=== PATIENT | male | born 1985 | race African-American/Black ===

== ENCOUNTER 2021-12-03 11:07 | Day surgery (SDC) | payer BC ==
[2021-11-25 16:59] VITALS: BMI 27.3
[2021-12-03] MEDS ORDERED: PROPOFOL 80 ML ONE (12:19)
[2021-12-03 13:06] VITALS: RESP 16; TEMP 98
[2021-12-03 13:37] VITALS: BP 110/58; PULSE 79
== END 2021-12-03 13:30 | disposition home or self-care (01) ==
LOC: FASU-ENDO 11:07
PROVIDERS: ATTEND Internal Medicine Gastroenterology
PROC: 0DB78ZX Excision of Stomach, Pylorus, Via Natural or Artificial Opening Endoscopic, Diagnostic (ICD-10-PCS; 2021-12-03)
PROC: 0DB48ZX Excision of Esophagogastric Junction, Via Natural or Artificial Opening Endoscopic, Diagnostic (ICD-10-PCS; 2021-12-03)
PROC: 0DB98ZX Excision of Duodenum, Via Natural or Artificial Opening Endoscopic, Diagnostic (ICD-10-PCS; principal; 2021-12-03 12:44)
DX: K29.70 Gastritis, unspecified, without bleeding (principal); K21.00 Gastro-esophageal reflux disease with esophagitis, without bleeding
CPT/HCPCS: 88305-TC; 88342-TC